=== PATIENT | female | born 1990 | race African-American/Black ===

== ENCOUNTER 2022-02-12 16:15 | Inpatient (IN) ==
[2022-02-12] MEDS ORDERED: OXYTOCIN 30 UNITS/500 ML BAG IV PRN ×2 (18:08→20:30)
[2022-02-12] MEDS ORDERED: LIDOCAINE 1% LOCAL 20 ML VIAL INFIL PRN (18:08)
[2022-02-12 18:31] LABS: Hematocrit (blood only) 32.1 % (34.1-44.9); Hemoglobin 10.7 g/dl (12.0-16.0); Mean Corpuscular Hemoglobin 28.3 pg (25.0-34.0); Mean Corpuscular Hgb Conc 33.3 g/dL (32.0-36.0); Mean Corpuscular Volume 84.9 fL (80.0-100.0); Mean Platelet Volume 10.5 fL (9.4-12.3); Platelet Count 271 K/uL (130-400); RDW Coefficient of Variation 13.8 % (11.5-14.5); RDW Standard Deviation 42.7 fL (36.4-46.3); Red Blood Count 3.78 M/uL (3.93-5.22); White Blood Count 12.88 K/ul (4.8-10.8)
[2022-02-12] MEDS: LACTATED RINGER'S 1,000 ML IV PRN ×2 (20:35→23:27)
[2022-02-12] MEDS ORDERED: SODIUM CHLORIDE 0.9% INJ 10 ML VIAL ONE (22:11)
[2022-02-12] MEDS ORDERED: LIDOCAINE 2%/EPINEPHRINE 1:200,000 20 ML SDV ONE (22:11)
[2022-02-12] MEDS ORDERED: BUPIVACAINE 0.25% 30 ML VIAL ONE (22:11)
[2022-02-12] MEDS ORDERED: fentaNYL citrate 100 MCG/2 ML VIAL ONE (22:11)
[2022-02-12] MEDS ORDERED: ePHEDrine sulfate 50 MG/ML AMP ONE (22:11)
[2022-02-12] MEDS ORDERED: fentaNYL 2MCG/ML ROPIVACAINE 1.25MG/ML 100 ML BAG EPI ONE (22:11)
[2022-02-12] MEDS ORDERED: NALOXONE HCL 0.4 MG/1 ML VIAL/CARP IV PRN (22:27)
[2022-02-12] MEDS ORDERED: ONDANSETRON INJ 2 MG/ML 2 ML VIAL IV PRN (22:27)
[2022-02-12] MEDS ORDERED: NALOXONE HCL 1 MG in SODIUM CHLORIDE 0.9% 1000ML 1,000 ML IV PRN (22:27)
[2022-02-12] MEDS ORDERED: METOCLOPRAMIDE HCL 20 MG in SODIUM CHLORIDE 0.9% 50 ML IV PRN (22:27)
[2022-02-12] MEDS ORDERED: diphenhydrAMINE 50 MG/ML VIAL IV PRN (22:27)
[2022-02-12] MEDS ORDERED: ePHEDrine sulfate 50 MG/ML AMP IV PRN (22:27)
[2022-02-12] MEDS ORDERED: PROMETHAZINE HCL 25 MG in SODIUM CHLORIDE 0.9% 50 ML IV PRN (22:27)
[2022-02-12] MEDS ORDERED: NALBUPHINE HCL INJ 10 MG/ML AMP IV PRN (22:27)
[2022-02-12] MEDS ORDERED: fentaNYL 2MCG/ML ROPIVACAINE 1.25MG/ML 100 ML BAG EPI PRN (22:27)
--- NOTE | 2022-02-12 22:33 | Anesthesiology Consultation ---
Date of Service February 12, 2022 Assessment & Plan Chart Review Chart Review: Acceptable Risk for Surgery and Acceptable Risk for Labor Epidural Consults Requested none ASA ASA2 Proposed Anesthesia Anesthesia Type: Labor Epidural Risk / Benefits Reviewed With: PT / POA / Parent / Guardian, Accepts Plan and Informed Consent Obtained History Surgery labor epidural Height/Weight Height: 5 ft 10.87 in Weight: 102.058 kg Allergies Allergy/AdvReac Type Severity Reaction Status Date / Time No Known Allergies Allergy Verified 02/12/22 16:46 Medications Home Medications Medication Instructions Recorded Confirmed Last Taken prenat.vits,enid,[id number] 1 tab PO DAILY 02/12/22 02/12/22 1 Day Ago ~02/11/22 1 Active Medications Generic Name Dose Route Start Last Admin Trade Name Freq PRN Reason Stop Dose Admin Lactated Ringer's 1,000 mls @ 125 mls/hr 02/12/22 18:08 02/12/22 22:00 Lr IV 02/14/22 18:07 999 mls/hr .Q8H PRN Infusion L&D Protocol Protocol Oxytocin 30 units in 500 mls @ 6 mls/hr 02/12/22 20:30 02/12/22 22:20 Pitocin IV 02/14/22 20:29 0.36 units/hr .Q24H PRN 6 mls/hr Labor Induction/Augmentation Titration Protocol 0.36 UNITS/HR Ropivacaine 100 ml 02/12/22 22:27 02/12/22 22:46 Fentanyl 2mcg/Ml Ropivacaine 1.25mg/Ml 100 Ml Bag EPI 02/13/22 22:26 12 ml PRN PRN Administration Pain R/T Labor Protocol NPO Date Last Intake of Fluids: 02/12/22 Time Last Intake of Fluids: 21:00 Date Last Intake of Solids: 02/12/22 Time Last Intake of Solids: 15:00 Past Medical History Medical History (Updated 02/12/22 @ 22:32 by Tracie Noriega DO) Delivery with history of Exercise / Class Metabolic Activity II 4-5 Yardwork/Stairs/Walk up hill Past Anesthesia History No Hx of Anesthesia Complications and No Family Hx of Anesthesia Complications History of PONV No Hx of PONV and No Hx of Motion Sickness Social History Smoking Status: Never smoker Do You Dip or Chew Tobacco: No Hx Alcohol Use: No Hx Substance Use: No Physical Exam Vital Signs Last Vital Signs Temp 36.9 C 02/12/22 19:03 Pulse 87 02/12/22 22:27 Resp 18 02/12/22 19:03 BP 117/65 02/12/22 21:33 Pulse Ox 100 02/12/22 22:27 ENMT Mouth: no TMJ abnormality Thyromental Distance: > or= 3.5 Finger Breadths Mallampati Class: II Neck normal visual inspection and trachea midline; neck extension not limited Respiratory normal respiratory effort Auscultation: lungs clear to auscultation bilaterally Cardiovascular Rate/Rhythm: regular rate and regular rhythm Heart Sounds: no murmur Musculoskeletal Spine: normal cervical ROM Extremities: full ROM of extremities Neurologic moves all extremities Psychiatric Orientation: alert and oriented x 3 Testing Laboratory Results 02/12/22 18:09 Blood Type O Positive 02/12/22 18:09 Antibody Screen NEGATIVE 02/12/22 18:09
[2022-02-13] MEDS ORDERED: METHYLERGONOVINE MALEATE 0.2 MG/ML AMP ONE (00:59)
[2022-02-13] MEDS ORDERED: miSOPROStoL 200 MCG TAB ONE (01:03)
[2022-02-13] MEDS ORDERED: DIPHTHERIA/TETANUS/PERTUSSIS 0.5 ML SYR/VIAL IM ONE (01:08)
[2022-02-13] MEDS ORDERED: ACETAMINOPHEN W/CODEINE #3 1 TAB PO PRN (01:08)
[2022-02-13] MEDS ORDERED: METHYLERGONOVINE MALEATE 0.2 MG/ML AMP IM ONE (01:08)
[2022-02-13] MEDS ORDERED: BENZOCAINE 20% AER SPR 82.5 GM CAN EXT PRN (01:08)
[2022-02-13] MEDS ORDERED: miSOPROStoL 200 MCG TAB PR ONE (01:08)
[2022-02-13] MEDS ORDERED: HYDROCORTISONE ACETATE 25 MG SUPP PR PRN (01:08)
[2022-02-13] MEDS ORDERED: OXYTOCIN 30 UNITS/500 ML BAG IV PRN (01:08)
[2022-02-13] MEDS ORDERED: oxyCODONE/ACETAMINOPHEN 5mg/325mg TAB PO PRN (01:08)
[2022-02-13] MEDS ORDERED: ACETAMINOPHEN 325 MG TAB PO PRN (01:08)
--- NOTE | 2022-02-13 02:01 | Delivery Summary ---
DATE OF SERVICE: 02/13/2022 DELIVERY NOTE: She is a 4, para 3, blood type is O positive. Due date is 03/02/2022. She was admitted at 37 weeks 3 days. She has been up all night the night before admission with lower back pain. She had recently been checked in the office. Head was low. Cervix was 2 cm. When I evaluated her, when she arrived at the hospital, the cervix was 4-5, could be even stretched to 6 with sporadic contractions. At this time, she was diagnosed as being in labor. Eventually, we went on to use IV Pitocin to stimulate her. It should be noted that she had a with her first delivery and then her second delivery was a successful vaginal after section. She was deemed to be a good candidate for a . Cervix was nice and ripened, the head was low. She had just been evaluated a week or so before with an ultrasound to evaluate the baby size. It was considered to be normal. We gave her Pitocin, got a regular pattern. She requested and received epidural anesthesia. We then ruptured the membranes. Fluid was clear, went to full dilatation, pushed out a live male via direct occiput anterior position over an intact perineum. was suctioned through the mouth and the nose. Shoulders were delivered without difficulty. Cord was allowed to pulse for a minute, then clamped and cut. Cord blood was taken. With IV Pitocin running, the placenta was removed intact. We had 1 or 2 small gushes of blood following this, and this was managed with IM Methergine and 800 mcg of rectal Cytotec. Following this, the uterus contracted nicely. Inspection of the perineum revealed no lacerations. The perineum was intact. Hemostasis was good. Estimated blood loss 300 mL. Job ID: [id number] [facility]
[2022-02-13] MEDS: IBUPROFEN 600 MG TAB PO PRN ×3 (03:37→20:18)
--- NOTE | 2022-02-13 06:05 | Anesthesia Procedure Note ---
Date of Service February 13, 2022 Anesthesia Post Epidural Note Vital Signs Vital Signs: Temp Pulse Resp BP Pulse Ox O2 Del Method 37.0 C 78 16 98/62 L 99 02/13/22 04:00 02/13/22 04:00 02/13/22 04:00 02/13/22 04:00 02/13/22 01:12 02/13/22 04:00 Pain Intensity Bilateral Pelvic: Pain Intensity: 9 Notes Mental Status: alert / awake / arousable and participated in evaluation Nausea / Vomiting: adequately controlled Pain: adequately controlled Airway Patency, RR, SpO2: stable & adequate BP & HR: stable & adequate Hydration State: stable & adequate Neuraxial Anesthesia: was administered and sensory block is resolving Anesthetic Complications: no major complications apparent and Pt Satisfied with anesthetic care Epidural: Removed without complications and With tip intact
[2022-02-13] MEDS: PRENATAL VITAMIN 1 TAB PO SCH (09:06)
[2022-02-13] MEDS: DOCUSATE SODIUM 100 MG CAP PO SCH ×2 (09:06→20:18)
[2022-02-14 07:25] LABS: Hematocrit (blood only) 31.6 % (34.1-44.9); Hemoglobin 10.5 g/dl (12.0-16.0); Mean Corpuscular Hemoglobin 28.3 pg (25.0-34.0); Mean Corpuscular Hgb Conc 33.2 g/dL (32.0-36.0); Mean Corpuscular Volume 85.2 fL (80.0-100.0); Mean Platelet Volume 10.4 fL (9.4-12.3); Platelet Count 276 K/uL (130-400); RDW Coefficient of Variation 13.8 % (11.5-14.5); Red Blood Count 3.71 M/uL (3.93-5.22); White Blood Count 14.54 K/ul (4.8-10.8)
[2022-02-14] MEDS: PRENATAL VITAMIN 1 TAB PO SCH (08:57)
[2022-02-14] MEDS: DOCUSATE SODIUM 100 MG CAP PO SCH ×2 (08:57→21:07)
--- NOTE | 2022-02-14 09:47 | Obstetrical Progress Note ---
Date of Service February 14, 2022 Assessment & Plan Admission and Anticipated Discharge Date Admission Date: February 12, 2022 Subjective abdomen soft and non tender no calf tenderness ambulating well vaginal bleeding scant hgb 10.5 Results & Data ([facility]) Vital Signs (Past 12 Hours) Vital Signs Temp Pulse Resp BP Pulse Ox O2 Del Method 02/14/22 08:00 36.8 C 76 16 105/72 100 Room Air 02/14/22 00:25 36.4 C L 89 16 98/64 L Room Air
[2022-02-14] MEDS ORDERED: bisacodyL 5 MG TABEC PO SCH (20:00)
[2022-02-15] MEDS ORDERED: bisacodyL 10 MG SUPP PR PRN
[2022-02-15] MEDS: IBUPROFEN 600 MG TAB PO PRN ×2 (00:30→07:39)
[2022-02-15 06:25] LABS: Hematocrit (blood only) 31.2 % (34.1-44.9); Hemoglobin 10.3 g/dl (12.0-16.0)
[2022-02-15] MEDS: DOCUSATE SODIUM 100 MG CAP PO SCH (07:38)
[2022-02-15] MEDS: PRENATAL VITAMIN 1 TAB PO SCH (07:39)
--- NOTE | 2022-02-15 09:08 | Obstetrical Progress Note ---
Date of Service February 15, 2022 Assessment & Plan Admission and Anticipated Discharge Date Admission Date: February 12, 2022 Subjective abdomen soft and non tender no calf tenderness ambulating well vaginal bleeding scant hgb 10.3 Results & Data ([facility]) Vital Signs (Past 12 Hours) Vital Signs Temp Pulse Resp BP Pulse Ox O2 Del Method 02/15/22 07:25 36.7 C 74 18 108/72 98 Room Air 02/14/22 23:03 36.6 C 94 H 18 110/74 98 Room Air
== END 2022-02-15 11:50 | disposition home or self-care (01) | DRG 807 ==
LOC: OPB 16:15 → 4S1 16:17 → 4E2 02-13 03:56